=== PATIENT | male | born 1985 | race Caucasian/White ===

== ENCOUNTER 2020-01-19 10:46 | Emergency (ER) | payer BC, OTHER ==
[~2020-01-19] VITALS: Ht 175.3 cm; Wt 107.5 kg
[2020-01-19 11:23] LABS: Basophils # (auto) 0 10 ^3/uL (0-0.2); Basophils % (auto) 0.6 % (0.0-2.0); Eosinophils # (auto) 0.2 10 ^3/uL (0-0.8); Eosinophils % (auto) 3.2 % (0.0-7.0); Hemoglobin 15.4 g/dL (13.5-17.5); Lymphocytes # (auto) 2.7 10 ^3/uL (0.4-5.4); Mean Corpuscular Hemoglobin 29.9 pg (28.0-32.0); Mean Corpuscular Hgb Conc. 34.3 g/dL (32.0-36.0); Mean Corpuscular Volume 87.2 fL (80.0-100.0); Monocytes # (auto) 0.7 10 ^3/uL (0-1.3); Monocytes % (auto) 9.3 % (0.0-12.0); Neutrophils # (auto) 3.4 10 ^3/uL (1.6-8.6); Neutrophils % (auto) 48.9 % (37.0-80.0); Nucleated Red Blood Cells % 0.1 %; Platelet Count (auto) 225 10^3/uL (140-450); Red Blood Cells 5.16 10^6/uL (4.5-5.90); Red Cell Distribution Width 13.4 % (11.8-14.3)
[2020-01-19 11:48] LABS: Calcium 8.9 mg/dL (8.5-10.1); Chloride 108 mmol/L (98-107); Potassium 4.1 mmol/L (3.5-5.1); Sodium 139 mmol/L (136-145)
[2020-01-19 11:51] LABS: INR 0.99 (0.9-1.15); Partial Thromboplastin Time 26.7 sec (23.64-32.05)
[2020-01-19 11:57] LABS: Alanine Aminotransferase 87 U/L (16-61); Albumin 4.5 g/dL (3.4-5.0); Alkaline Phosphatase 59 U/L (45-117); Anion Gap 4 (5-15); Aspartate Aminotransferase 30 U/L (15-37); BUN/Creatinine Ratio 16.2; Bilirubin, Total 0.6 mg/dL (0.2-1.0); Blood Urea Nitrogen 19 mg/dL (7-18); Carbon Dioxide 27 mmol/L (21-32); GFR African American 91 mL/min; GFR Non-African American 75 mL/min; Glucose 103 mg/dL (74-106); Magnesium 2.6 mg/dL (1.6-2.6); Total Protein 7.5 g/dL (6.4-8.2)
[2020-01-19] MEDS ORDERED: KETOROLAC TROMETH 30 MG/ML 1ML VIAL IV ONE (12:45)
[2020-01-19 13:14] LABS: Urine Bacteria NONE SEEN /hpf (None Seen); Urine Blood Negative /uL (Negative); Urine Mucus FEW (None Seen); Urine Specific Gravity 1.015 (1.001-1.035); Urine WBC 1 /hpf (0 - 3)
[2020-01-19 13:31] LABS: Amphetamine Screen, Urine NEGATIVE (NEGATIVE); Barbiturate Scree,Urine NEGATIVE (NEGATIVE); Benzodiazephine Screen, Urine NEGATIVE (NEGATIVE); Cannabinoid Screen, Urine NEGATIVE (NEGATIVE); Cocaine Screen, Urine NEGATIVE (NEGATIVE); Opiate Scree,Urine NEGATIVE (NEGATIVE); Phencyclidine Screen, Urine NEGATIVE (NEGATIVE)
[2020-01-19 13:55] LABS: Alcohol, Urine < 3.0 mg/dL (0-10)
[2020-01-19 14:40] VITALS: BP 141/82
== END 2020-01-19 14:42 | disposition home or self-care (01) ==
LOC: ER 10:46
DX: R07.89 Other chest pain (principal); I10 Essential (primary) hypertension; J18.9 Pneumonia, unspecified organism
CPT/HCPCS: 36415; 71046; 80053; 80307; 81001; 83735; 83880; 84443; 84484; 85025; 85610; 85730; 93005; 96374; 99285; J1885

== ENCOUNTER 2021-06-21 17:35 | Emergency (ER) | payer SELFPAY ==
[~2021-06-21] VITALS: Ht 175.3 cm; Wt 102.5 kg
[2021-06-21 17:47] VITALS: BP 147/65
== END 2021-06-21 20:57 | disposition left against medical advice (07) ==
LOC: ER 17:35
DX: R07.89 Other chest pain (principal); R11.0 Nausea; Z53.21 Procedure and treatment not carried out due to patient leaving prior to being seen by health care provider
CPT/HCPCS: 93005